=== PATIENT | male | born 1965 | race Caucasian/White ===

== ENCOUNTER 2018-10-22 23:23 | Emergency (ER) | payer OTHER ==
[~2018-10-22] VITALS: Ht 182.9 cm; Wt 124.7 kg
[2018-10-22] MEDS ORDERED: ASPIRIN325 PO (23:32)
[2018-10-23] MEDS ORDERED: HYDROCODON-ACE1 EAC8 PO (00:42)
[2018-10-23 00:49] VITALS: BP 158/86
--- NOTE | 2018-10-23 11:39 | EKG ---
[place] [address] ELECTROCARDIOGRAM REPORT Name: YASIR ZAPATA JR Room: [facility]#: [id number] Admission: 10/22/18 Attend Phys: Discharge: 10/23/18 Date of : 67 Report #: [id number] THIS REPORT FOR: //name// [facility] ED Test Date: 2018-10-22 Test Time: 23:31:36 Pat Name: YASIR ZAPATA Department: Room: Gender: M De Icer: : 1965 Requested By: Lou Bynum Order Number: [id number] Karl MD: Sarthak Talley Measurements Intervals [place] Rate: 94 P: 65 [place]: 154 QRS: -9 QRSD: 91 T: 67 QT: 386 QTc: 483 Interpretive Statements Sinus rhythm Abnormal inferior Q waves Anterior infarct, old No previous ECG available for comparison Electronically Signed On 10-23-2018 11:39:29 [employer] ASSISTANT MANAGER by Sarthak Talley [email or web address] <ELECTRONICALLY SIGNED> By: Sarthak Talley MD, [facility] 10/23/18 [id number] Sarthak Talley MD, FACC /EPI
== END 2018-10-23 00:49 | disposition home or self-care (01) ==
LOC: M.ERS 23:23
DX: S06.0X9A Concussion with loss of consciousness of unspecified duration, initial encounter (principal); W01.0XXA Fall on same level from slipping, tripping and stumbling without subsequent striking against object, initial encounter; Y93.89 Activity, other specified; Y92.89 Other specified places as the place of occurrence of the external cause; Y99.8 Other external cause status